=== PATIENT | male | born 1955 | race Caucasian/White ===

== ENCOUNTER 2018-04-11 13:45 | Emergency (ER) | payer OTHER ==
[2018-04-11 14:02] VITALS: BP 123/85
--- NOTE | 2018-04-11 15:07 | UC ---
Back Pain HPI - HPI Summary HPI Summary: 62 male patient c/o Back pain, toward L flank, has been going on for a few weeks , worse today. Hx kidney stones, states pain i s 01/06, denies fever, chills, flank pain, dysuria or frequency out of the ordinary. States he has nocturia because he has Hx of metastasic prostate cancer, last bone scan was in January at [facility], had hormonal treatment in the past. Currently only on zetia. - History of Current Complaint Chief Complaint: UCBackPain Stated Complaint: LOWER BACK PAIN Time Seen by Provider: 04/11/18 14:57 Hx Obtained From: Patient Onset/Duration: Gradual Onset Timing: Constant Severity Initially: Mild Severity Currently: Severe Pain Intensity: 7 Back Pain: Is Discrete @ - left Character: Dull, Aching Aggravating Factor(s): Nothing Alleviating Factor(s): Nothing - Risk Factors AAA Risk Factors: Negative TAD Risk Factors: Negative Cauda Equina Risk Factors: Negative Epidural Abscess Risk Factors: Negative - Allergies/Home Medications Allergies/Adverse Reactions: Allergies Allergy/AdvReac Type Severity Reaction Status Date / Time Penicillins Allergy Rash Verified 04/11/18 14:02 Home Medications: Home Medications Naproxen Sodium [Aleve] 220 mg PO BID PRN 04/11/18 [History Confirmed 04/11/18] PMH/Surg Hx/FS Hx/Imm Hx - Additional Past Medical History Additional PMH: metastasic prostate cancer HLD Endocrine History: Dyslipidemia - Surgical History Surgical History: Yes Surgery Procedure, Year, and Place: prostate 2006 - Family History Known Family History: Positive: Cardiac Disease - Social History Alcohol Use: Occasionally Substance Use Type: None Smoking Status (MU): Former Smoker Have You Smoked in the Last Year: No When Did the Patient Quit Smoking/Using Tobacco: 1981 - Immunization History Most Recent Tetanus Shot: within last 10 yrs Review of Systems Constitutional: Negative Musculoskeletal: Arthralgia, Myalgia All Other Systems Reviewed And Are Negative: Yes Physical Exam Triage Information Reviewed: Yes Appearance: Well-Appearing, No Pain Distress Vital Signs: Initial Vital Signs Temp 97.3 F 04/11/18 13:55 Pulse 78 04/11/18 13:55 Resp 16 04/11/18 13:55 BP 123/85 04/11/18 13:55 Pulse Ox 97 04/11/18 13:55 Vital Signs Reviewed: Yes Eyes: Positive: Conjunctiva Clear ENT: Positive: Hearing grossly normal, Pharynx normal Neck: Positive: Supple, Nontender, No Lymphadenopathy Respiratory: Positive: Chest non-tender, Lungs clear, Normal breath sounds Cardiovascular: Positive: RRR, No Murmur, Pulses Normal, Brisk Capillary Refill Abdomen Description: Positive: Nontender, No Organomegaly, Soft Bowel Sounds: Positive: Present Neurological: Positive: Alert, Muscle Tone Normal Back Pain Course/Dx - Course Course Of Treatment: Degenerative disc disease at L4-L5 and L5-S1, Flat plate of the abdomen demonstrates calcification overlying the upper pole of the left. kidney. No evidence of right renal calculi is noted. Multiple surgical clips are - Differential Dx/Diagnosis Provider Diagnoses: left lumbago. Left kidney urolithiasis Discharge - Sign-Out/Discharge Documenting (check all that apply): Patient Departure All imaging exams completed and their final reports reviewed: Yes - Discharge Plan Condition: Stable Disposition: HOME Patient Education Materials: Kidney Stones (ED), Tamsulosin (By mouth) Referrals: Yash Rivera MD [Primary Care Provider] - - Billing Disposition and Condition Condition: STABLE Disposition: Home
[2018-04-11] MEDS ORDERED: Ketorolac INJ* 60 MG/2 ML VIAL IM ONE (15:12)
--- NOTE | 2018-04-11 15:40 | RAD ---
Indication: Back pain. 3 views of lumbar spine demonstrates vertebral bodies to be normal in height. Mild disc space narrowing at L4-L5 and L5-S1 degenerative disc disease. No fracture is noted. Incidentally noted is a left renal calculi. IMPRESSION: Degenerative disc disease at L4-L5 and L5-S1.
--- NOTE | 2018-04-11 15:41 | RAD ---
Indication: Kidney stones. Comparison is made with the previous exam dated August 04, 2014. Flat plate of the abdomen demonstrates calcification overlying the upper pole of the left kidney. No evidence of right renal calculi is noted. Multiple surgical clips are noted in the pelvis. Bowel gas pattern and organ silhouettes are grossly unremarkable. IMPRESSION: Calcification overlying the upper pole of the left kidney may be minimally larger than on previous exam of August 04, 2014.
== END 2018-04-11 16:30 | disposition home or self-care (01) ==
LOC: UCEAST 13:45
DX: M51.37 Other intervertebral disc degeneration, lumbosacral region (principal); N20.0 Calculus of kidney; Z87.891 Personal history of nicotine dependence; Z85.46 Personal history of malignant neoplasm of prostate; Z88.0 Allergy status to penicillin
CPT/HCPCS: 72100; 74018; 81003; 87086; 99212; G0463; J1885

== ENCOUNTER 2018-04-20 12:01 | Day surgery (SDC) | payer OTHER ==
--- NOTE | 2018-04-15 19:39 | HP ---
CC: Dr. Yash Rivera; Dr. Marty Carrera, Department of Medical Oncology, [facility] [place] * ADMITTING HISTORY AND PHYSICAL: DATE OF ADMISSION: 04/20/18 ADMITTING DIAGNOSES: 1. Left renal calculus. 2. Left flank pain. PLANNED PROCEDURE: Left stent insertion and shock wave lithotripsy of left renal calculus. SURGEON: Dr. Benson. HISTORY OF PRESENT ILLNESS: Gerry Sunshine is a 62-year-old gentleman with a history of recurrent renal calculi. For the last few weeks, he had episode of left flank pain which has occasionally become much more severe and an x-ray revealed calculus in the area of upper pole of the left kidney. This was confirmed on ultrasound and I suspect that the calculus may have been intermittently moving between the renal pelvis and the upper pole causing him intermittent pain and he is now being brought in for management of his pain. PAST MEDICAL HISTORY: Significant for prostate cancer which was diagnosed in 2006 which has since recurred initially in 2010 and was treated with radiation therapy and subsequently in February of 2017 and he was then treated at that time with Lupron, which he last received in April of 2017. PAST SURGICAL HISTORY: Significant for radical retropubic prostatectomy in 2006. MEDICATIONS: On admission: 1. Flomax 0.4 mg once a day (prescribed by [facility] because of the findings of renal calculus). 2. Zetia 10 mg a day. 3. Ibuprofen p.r.n. 4. Aspirin, which is currently on hold. ALLERGIES: PENICILLIN (hives). FAMILY HISTORY: His father had a history of kidney stones. PHYSICAL EXAMINATION GENERAL: Reveals a pleasant, uncomfortable appearing middle-aged gentleman. VITAL SIGNS: Blood pressure is 122/82, pulse 56 per minute, temperature 96.3, oxygen saturation 98% on room air. LUNGS: Clear bilaterally. CARDIOVASCULAR: Regular rate and rhythm. S1, S2. ABDOMEN: Soft with mild left flank tenderness. LABORATORY DATA: Urinalysis is negative. I reviewed the ultrasound and x-ray, and had a detailed discussion with Mr. Sunshine regarding the findings of nonobstructing left upper pole renal calculus. I discussed in detail the procedure of shock wave lithotripsy and possibility of bleeding, infection, incomplete fragmentation. I also discussed that if his left flank pain were to get significantly worse prior to the scheduled date of 04/20/18, then I would consider having him come sooner for a stent placement to prevent the stone from being able to move around quite as much. All his questions were answered. PLAN: Plan is for left stent insertion and shock wave lithotripsy of left renal calculus. [id number]/[facility] #: [id number] MTDD
[~2018-04-20 12:01] MED LIST: Buffered Lidocaine 0.9% SYRIN* 5 ML/SYR SYRINGE INTRADERM ONE; Sodium Citrate/Citric Acid* 15 ML UDC PO ONE
--- NOTE | 2018-04-20 12:38 | RAD ---
Indication: Post shockwave lithotripsy. Comparison: April 15, 2018 Technique: Supine view of the abdomen. Report: Solitary LEFT renal stone visualized measuring up to 1.1 cm maximum dimension without change. Bowel contents partially obscures the LEFT renal fossa. No suspicious calcifications along the expected course of the ureters. Bilateral pelvic surgical clips. Unremarkable bowel gas pattern and soft tissue contours. IMPRESSION: #. Solitary LEFT renal stone visualized measuring up to 1.1 cm maximum dimension without change.
[2018-04-20] MEDS ORDERED: Sodium Citrate/Citric Acid* 15 ML UDC ONE (12:57)
[2018-04-20] MEDS ORDERED: Levofloxacin 500 MG IVPREMIX(* 500 MG/100 ML BAG IVPB ONE (12:57)
[2018-04-20] MEDS ORDERED: Buffered Lidocaine 0.9% SYRIN* 5 ML/SYR SYRINGE ONE ×3 (13:22→13:23)
[2018-04-20] MEDS ORDERED: Iohexol 180 (CONTRAST) 10 ML SDV IV ONE (15:21)
[2018-04-20] MEDS ORDERED: fentaNYL* 50 MCG/ML 2 ML VIAL (100 MCG VIAL) ONE ×2 (15:24→17:11)
[2018-04-20] MEDS ORDERED: Propofol* 10 MG/ML 20 ML BTL IV PUSH ONE (15:25)
[2018-04-20] MEDS ORDERED: Lidocaine 2% PF * 5 ML VIAL ONE (15:25)
[2018-04-20] MEDS ORDERED: Furosemide IV* 10 MG/ML 2 ML VIAL (20 MG) ONE (15:53)
[2018-04-20] MEDS ORDERED: Naloxone* 0.4 MG/ML 1 ML VIAL IV PRN (16:14)
[2018-04-20] MEDS ORDERED: Ondansetron INJ* 2 MG/ML VIAL ONE (17:26)
[2018-04-20] MEDS ORDERED: oxyCODONE/Acetamin 5/325 MG* TAB ONE ×2 (17:30→17:42)
[2018-04-20 20:09] VITALS: BP 145/85
--- NOTE | 2018-04-21 08:29 | RAD ---
Indication: Postop left ureteral stent placement. Single view of the abdomen demonstrates left ureteral stent in place. Bowel gas pattern is unremarkable. Surgical clips are noted in the pelvis. Calculi is noted in the upper pole of the left kidney. IMPRESSION: Left ureteral stent in place. Calculi upper pole left kidney. R1
--- NOTE | 2018-04-21 09:08 | OP ---
CC: Dr. Yash Rivera; Dr. Marty Ybarra, Department of Medical Oncology, [facility] * DATE OF OPERATION: 04/20/18 - SDS DATE OF : 57 SURGEON: Reed Benson MD ANESTHESIOLOGIST: Dr. Fishman. ANESTHESIA: General. PRE-OP DIAGNOSES: 1. Left flank pain. 2. Left renal calculus. POST-OP DIAGNOSES: 1. Left flank pain. 2. Left renal calculus. OPERATIVE PROCEDURES: 1. Cystoscopy, left retrograde pyelogram, and left ureteral stent insertion. 2. Shock wave lithotripsy of left renal calculus. COMPLICATIONS: None. INDICATIONS: Gerry Sunshine is a 62-year-old gentleman who has had episodic left flank pain secondary to a large calculus in the upper pole of the left kidney. POSTOPERATIVE CONDITION: Stable. STENT USED: 8-Ivorian stent left ureter. OPERATIVE FINDINGS: 1. Left renal calculus. 2. Few areas of telangiectasia in the bladder consistent with a history of radiation. DESCRIPTION OF PROCEDURE: After induction of general anesthesia, the patient was placed in dorsal lithotomy position. Sequential compression devices were in place and functioning. Initial cystoscopy revealed a normal-appearing urethra. The patient is status post radical prostatectomy and the bladder neck appeared normal. The bladder was entered and examined. The right and left ureteral orifices were normal in position and configuration. There were few areas of telangiectasia distributed throughout the floor and lateral ramirez of the bladder consistent with a history of radiation. There was no evidence of any suspicious bladder lesions noted. Left retrograde pyelogram revealed a filling defect in the upper calyx consistent with a known location of the calculus. There was no evidence of obstruction. An 8- Ivorian stent was introduced and positioned under fluoroscopy with good proximal and distal positioning obtained. Next the patient was placed on the lithotripsy table in a supine position. The calculus in the upper pole was localized using fluoroscopy and shock wave lithotripsy was commenced at a rate of 60 shocks per minute. After the initial 300 shocks, there was a pause in lithotripsy for several minutes in an effort to minimize any potential trauma to the kidney. Lithotripsy was then resumed and periodic imaging revealed good localization and fragmentation. A total of 2400 shocks were administered. The patient tolerated the procedure satisfactorily and was transferred back to the recovery area in stable condition. [id number]/[facility] #: [id number] CROUSE HOSPITALRoberto
== END 2018-04-20 20:23 | disposition home or self-care (01) ==
LOC: OR 12:01
PROVIDERS: ATTEND Urology
DX: N20.0 Calculus of kidney (principal); R10.32 Left lower quadrant pain; R39.89 Other symptoms and signs involving the genitourinary system; Z85.46 Personal history of malignant neoplasm of prostate; C79.51 Secondary malignant neoplasm of bone
CPT/HCPCS: 74018; A9270-GY; C1876; J1940; J1956; J2405; J2704; J3010

== ENCOUNTER 2018-09-12 12:03 | Emergency (ER) | payer OTHER ==
--- NOTE | 2018-09-12 13:23 | ED ---
Lower Extremity - HPI Summary HPI Summary: Patient is a 63-year-old male presenting to the ED after a leg injury while skiing 2 days ago. He states he hyperextended the calf muscle of his left leg when his ski did not unhook. He did not twist the bone to his knowledge and denies any ankle or hip pain. He denies any knee pain. He states the leg has been swollen 2 days with ecchymosis to the posterior thigh, behind the knee and to the medial and lateral sides of the feet. He has remained ambulatory with slight discomfort throughout due to swelling. He states he's never injured the area before. Denies any numbness tingling to the leg. He does endorse a long flight back to this area, however had been having significant swelling prior to the flight. - History of Current Complaint Chief Complaint: EDExtremityLower Stated Complaint: LEFT LEG INJURED WHILE SKIING ON FRIDAY PER PT Time Seen by Provider: 09/12/18 12:09 Hx Obtained From: Patient Mechanism Of Injury: Twisted Onset of Pain: Hours, Days Onset/Duration: Days Severity Initially: Moderate Severity Currently: Moderate Pain Intensity: 3 Character Of Pain: Aching Associated Signs And Symptoms: Positive: Swelling, Bruising. Negative: Redness Aggravating Factor(s): Standing, Ambulation Alleviating Factor(s): Rest Able to Bear Weight: Yes - Risk Factors Gout Risk Factors: Age Over 40, Male DVT Risk Factors: Negative, Recent Travel, Recent Trauma Septic Arthritis Risk Factor: Negative - Allergies/Home Medications Allergies/Adverse Reactions: Allergies Allergy/AdvReac Type Severity Reaction Status Date / Time Penicillins Allergy Rash Verified 04/20/18 12:32 PMH/Surg Hx/FS Hx/Imm Hx Previously Healthy: Yes Cardiovascular History: Reports: Hx Coronary Artery Disease - on asa History: Reports: Hx Kidney Stones Sensory History: Reports: Hx Contacts or Glasses - glasses and contacts Denies: Hx Hearing Aid Opthamlomology History: Reports: Hx Contacts or Glasses - glasses and contacts - Cancer History Cancer Type, Location and Year: prostate cancer 2006, 2010,2012 - radiation 2010 - Surgical History Surgery Procedure, Year, and Place: prostate 2006, [facility]. kidney stones, 1997, 1984. left knee 1990s Hx Anesthesia Reactions: No - Immunization History Hx Pertussis Vaccination: No Immunizations Up to Date: Yes Infectious Disease History: No Infectious Disease History: Denies: Hx Clostridium Difficile, Hx Hepatitis, Hx Human Immunodeficiency Virus (HIV), Hx of Known/Suspected MRSA, Hx Shingles, Hx Tuberculosis, Hx Known/ Suspected VRE, Hx Known/Suspected VRSA, History Other Infectious Disease, Traveled Outside the [place] in Last 30 Days - Family History Known Family History: Positive: Cardiac Disease - Social History Occupation: Employed Full-time Lives: With Family Alcohol Use: Weekly Alcohol Amount: 3-4 per week Hx Substance Use: No Substance Use Type: Reports: None Hx Tobacco Use: Yes Smoking Status (MU): Former Smoker Amount Used/How Often: pack a day for 7 yrs Have You Smoked in the Last Year: No Review of Systems Constitutional: Negative Negative: Fever, Chills, Fatigue, Skin Diaphoresis Negative: Palpitations, Chest Pain Negative: Shortness Of Breath, Cough Genitourinary: Negative Positive: no symptoms reported, see HPI Negative: Arthralgia, Myalgia Skin: Negative Neurological: Negative All Other Systems Reviewed And Are Negative: Yes Physical Exam Triage Information Reviewed: Yes Vital Signs On Initial Exam: Initial Vitals Temp Pulse Resp BP Pulse Ox 97 F 76 18 155/95 98 09/12/18 12:05 09/12/18 12:05 09/12/18 12:05 09/12/18 12:05 09/12/18 12:05 Vital Signs Reviewed: Yes Appearance: Positive: Well-Appearing, Well-Nourished Skin: Positive: Warm, Skin Color Reflects Adequate Perfusion Head/Face: Positive: Normal Head/Face Inspection Eyes: Positive: EOMI, Conjunctiva Clear Neck: Positive: Supple, No Lymphadenopathy Respiratory/Lung Sounds: Positive: Clear to Auscultation, Breath Sounds Present Cardiovascular: Positive: RRR, Pulses are Symmetrical in both Upper and Lower Extremities Musculoskeletal: Positive: Pain @ - left leg swelling with ecchymosis - no limitations on ROM Neurological: Positive: Sensory/Motor Intact, Alert, Oriented to Person Place, Time Psychiatric: Positive: Normal, Affect/Mood Appropriate AVPU Assessment: Alert Diagnostics - Vital Signs Vital Signs Temp Pulse Resp BP Pulse Ox 09/12/18 12:05 97 F 76 18 155/95 98 - Laboratory Lab Statement: Any lab studies that have been ordered have been reviewed, and results considered in the medical decision making process. Lower Extremity Course/Dx - Course Course Of Treatment: Physical examination, there is ecchymosis to the posterior thigh just above the posterior knee, ecchymosis to the medial and lateral sides of the feet with swelling throughout the left lower extremity just BTK. He has remained ambulatory, but with discomfort. He has been trying to elevate the extremity as much as possible and using ice. Ultrasound of the left lower chin D shows no signs of DVT. Patient is encouraged to elevate and ice and use ibuprofen. He will be diagnosed with muscle tear and LE edema. - Diagnoses Differential Diagnosis/HQI/PQRI: Positive: Sprain, Strain Provider Diagnoses: Lower leg edema, Muscle tear Discharge - Sign-Out/Discharge Documenting (check all that apply): Patient Departure Patient Received Moderate/Deep Sedation with Procedure: No - Discharge Plan Condition: Stable Disposition: HOME Patient Education Materials: Leg Edema (ED) Referrals: Yash Rivera MD [Primary Care Provider] - Additional Instructions: No evidence of DVT Elevation and ibuprofen will improve your symptoms - Billing Disposition and Condition Condition: STABLE Disposition: Home
[2018-09-12 14:33] VITALS: BP 170/97
== END 2018-09-12 14:32 | disposition home or self-care (01) ==
LOC: ED 12:03
DX: S86.912A Strain of unspecified muscle(s) and tendon(s) at lower leg level, left leg, initial encounter (principal); R60.9 Edema, unspecified; W19.XXXA Unspecified fall, initial encounter; Y93.24 Activity, cross country skiing; Y92.9 Unspecified place or not applicable; Z87.891 Personal history of nicotine dependence; Z88.0 Allergy status to penicillin
CPT/HCPCS: 99282